=== PATIENT | female | born 1965 | race Two or more races ===

== ENCOUNTER 2018-09-22 09:53 | Emergency (ER) | payer OTHER ==
[~2018-09-22] VITALS: Ht 154.9 cm; Wt 76.2 kg
[~2018-09-22 09:53] MED LIST: CYCL-259 PO; LOSA100T14 PO; METF500T9 PO
--- NOTE | 2018-09-22 11:07 | NUR ---
BREAK RN: DR MILLER AT BEDSIDE TO VANITA CASTILLO
[2018-09-22] MEDS ORDERED: ASPIRIN 81 MG TABLET CHEW ONE (11:25)
[2018-09-22] MEDS ORDERED: ONDANSETRON 2MG/ML, 2ML ONE (11:25)
[2018-09-22] MEDS ORDERED: MORPHINE SULFATE 4 MG/ML, 1ML ONE (11:26)
[2018-09-22] MEDS ORDERED: ONDANSETRON 2MG/ML, 2ML IVPush ONE (11:30)
[2018-09-22] MEDS ORDERED: ASPIRIN 81 MG TABLET CHEW PO ONE (11:30)
[2018-09-22] MEDS ORDERED: MORPHINE SULFATE 4 MG/ML, 1ML IVPush PRN (11:30)
--- NOTE | 2018-09-22 11:32 | NUR ---
PT MEDICATED ORDERED. PT PAIN 02/15 AT THIS TIME. SB PER MONITOR. AUTO BP AND PULSE OX IN PLACE. PTS FAMILY AT BEDSIDE. PT UPDATED ON POC.
--- NOTE | 2018-09-22 11:42 | NUR ---
REPORT TO TULIO SAUCEDA
[2018-09-22 11:48] LABS: BASOPHILS # (AUTO) 0.04 x10^3/uL (0-0.1); BASOPHILS % (AUTO) 0 % (0-1); EOSINOPHILS % (AUTO) 0 % (1-7); LYMPHOCYTES # (AUTO) 3.02 x10^3/uL (1-3.4); LYMPHOCYTES % (AUTO) 30 % (22-44); MD NO; MEAN CORPUSCULAR HEMOGLOBIN 28.9 pg (27.0-34.8); MEAN CORPUSCULAR HGB CONC 33.5 g/dL (32.4-35.8); MEAN CORPUSCULAR VOLUME 86.3 fL (80-100); MEAN PLATELET VOLUME 8.6 fL (7.4-10.4); MONOCYTES # (AUTO) 0.54 x10^3/uL (0.2-0.8); MONOCYTES % (AUTO) 5 % (2-9); NEUTROPHILS # (AUTO) 6.59 x10^3/uL (1.8-6.8); NEUTROPHILS % (AUTO) 65 % (42-75); PLATELET COUNT 229 x10^3/uL (130-400); RED BLOOD COUNT 5.09 x10^6/uL (3.82-5.3); RED CELL DISTRIBUTION WIDTH 13.9 % (9.6-15.2)
[2018-09-22 11:58] LABS: ALBUMIN 3.6 g/dL (3.4-5.0); ANION GAP 3 mmol/L (5-15); CALCIUM 8.8 mg/dL (8.5-10.1); CHLORIDE 107 mmol/L (98-107); CREATININE 0.63 mg/dL (0.55-1.02)
[2018-09-22 12:02] LABS: TROPONIN I < 0.015 ng/mL (0.000-0.045)
[2018-09-22 12:31] VITALS: BP 136/78
--- NOTE | 2018-09-22 12:31 | NUR ---
PT DISCHARGED WITH DISCHARGE INSTRUCTIONS AND FOLLOW UP INSTRUCTIONS. PT STABLE ON FEET.
== END 2018-09-22 12:33 | disposition home or self-care (01) ==
LOC: ED 12:19
DX: R07.89 Other chest pain (principal); I10 Essential (primary) hypertension; G89.29 Other chronic pain; E11.9 Type 2 diabetes mellitus without complications
CPT/HCPCS: 36415; 71045; 80048; 82040; 84484; 85025; 93005; 96374; 96375; 99284; J2405

== ENCOUNTER 2018-10-04 11:14 | Outpatient (CLI) | payer OTHER | END 2018-10-04 23:59 | disposition home or self-care (01) | LOC: CFH 11:14 | PROVIDERS: ATTEND Physician Assistant Medical | DX: Z12.31 Encounter for screening mammogram for malignant neoplasm of breast (principal) | CPT/HCPCS: 77067 ==